=== PATIENT | male | born 1950 | race Native Hawaiian/Other Pacific Islander ===

== ENCOUNTER → 2016-06-11 | Outpatient (CLI) | payer OTHER, MEDICARE | LOC: GMAM 14:40 | PROVIDERS: ATTEND Family Medicine | DX: Z12.5 Encounter for screening for malignant neoplasm of prostate (principal) ==

== ENCOUNTER → 2017-01-13 | Outpatient (CLI) | payer OTHER, MEDICARE ==
--- NOTE | 2017-01-13 10:01 | MRI ---
EXAM DESCRIPTION: Cervical Spine CLINICAL HISTORY: 66 years, Male, neck pain, bilateral shoulder pain COMPARISON: Plain radiographs January 07, 2017 FINDINGS: Sagittal and axial sequences. Bone marrow signal is unremarkable. There is however moderate artifact from metallic dental fillings obscuring visualization of the upper cervical spine. Cord is normal signal characteristics. C2-3 unremarkable. At C3-4 left-sided disc osteophyte flattens the thecal sac and narrows the exit foramen. Mild facet degenerative change. At C4-5 focal central right-sided protrusion, about 1.5 mm, effaces the subarachnoid space may minimally impinge the cord. Narrowing C5-6 with bulging disc osteophyte asymmetric to the right. Flattening of the thecal sac and narrowing of the right exit foramen. Mild facet degenerative change. At C6-7 central and right-sided bulge slightly flattens the thecal sac. IMPRESSION: 1. Left-sided disc osteophyte C3-4 flattening thecal sac and narrows the left exit foramen 2. Focal central and right-sided protrusion C4-5 effaces subarachnoid space and minimally impinges the cord 3. Narrowing at C5-6 with bulging disc asymmetric to the right. Narrowing of the right exit foramen. Other mild disc changes present as discussed above Electronically signed by: Philip Jefferson MD 01/13/2017 9:59 AM CDT
== END | disposition home or self-care (01) ==
LOC: MRI 07:04
PROVIDERS: ATTEND Family Medicine
DX: M25.78 Osteophyte, vertebrae (principal); M54.2 Cervicalgia; R93.8 Abnormal findings on diagnostic imaging of other specified body structures

== ENCOUNTER → 2017-03-14 | Outpatient (CLI) | payer OTHER, MEDICARE ==
--- NOTE | 2017-03-17 08:00 | US ---
EXAM DESCRIPTION: Extremity,Lower [place] Arteries CLINICAL HISTORY: 66 years Male, PVD COMPARISON: None. TECHNIQUE: 2-D grayscale and color arterial duplex Doppler evaluation of the bilateral lower extremities is performed. FINDINGS: Mild scattered calcified plaque of the arterial vasculature of the bilateral lower extremities is seen. There is triphasic to biphasic waveform flow from proximal to distal both lower extremities. No elevated velocities or arterial occlusion is seen. IMPRESSION: Mild atherosclerotic disease of the bilateral lower extremities with no ultrasound evidence of high-grade arterial stenosis or occlusion. Electronically signed by: Judah Barrera MD 03/17/2017 7:59 AM CDT
== END | disposition home or self-care (01) ==
LOC: US 10:04
PROVIDERS: ATTEND Family Medicine
DX: I70.203 Unspecified atherosclerosis of native arteries of extremities, bilateral legs (principal)

== ENCOUNTER → 2017-07-11 | Outpatient (CLI) | payer MEDICARE, OTHER | LOC: GMAM 11:34 | PROVIDERS: ATTEND Family Medicine | DX: E29.9 Testicular dysfunction, unspecified (principal); Z12.5 Encounter for screening for malignant neoplasm of prostate | CPT/HCPCS: 84403; G0103 ==

== ENCOUNTER → 2018-05-27 | Outpatient (CLI) | payer MEDICARE, OTHER | LOC: GMAM 15:31 | PROVIDERS: ATTEND Family Medicine | DX: R06.02 Shortness of breath (principal); R05 Cough ==

== ENCOUNTER → 2018-12-16 | Outpatient (CLI) | payer MEDICARE, OTHER | LOC: GMAM 10:33 | PROVIDERS: ATTEND Family Medicine | DX: E29.9 Testicular dysfunction, unspecified (principal); I10 Essential (primary) hypertension; E11.9 Type 2 diabetes mellitus without complications ==

== ENCOUNTER → 2019-03-24 | Outpatient (CLI) | payer MEDICARE, OTHER | LOC: GMAHI 10:36 | PROVIDERS: ATTEND Nurse Practitioner Family | DX: E29.9 Testicular dysfunction, unspecified (principal) ==

== ENCOUNTER → 2020-06-14 | Outpatient (CLI) | payer MEDICARE, OTHER | LOC: GMAM 14:05 | PROVIDERS: ATTEND Family Medicine | DX: Z12.5 Encounter for screening for malignant neoplasm of prostate (principal); I10 Essential (primary) hypertension; E11.9 Type 2 diabetes mellitus without complications; E78.2 Mixed hyperlipidemia ==